=== PATIENT | female | born 1995 | race African-American/Black ===

== ENCOUNTER 2021-07-23 20:51 | Emergency (ER) | payer OTHER ==
[~2021-07-23] VITALS: Ht 165.1 cm; Wt 57.2 kg
[2021-07-23 21:00] VITALS: BP 115/90
--- NOTE | 2021-07-23 21:00 | NUR ---
TO BED AMBULATORY
[2021-07-23] MEDS ORDERED: SILVER SULFADIAZINE 1% 50 GM JAR TP ONE (21:15)
--- NOTE | 2021-07-23 21:15 | NUR ---
LEFT FOOT PAIN WITH BLISTERS X2 AFTER SPILLING HOT COOKING OIL ON FOOT
[2021-07-23] MEDS ORDERED: HYDROcodone/APAP 5/325 MG 1 TAB TAB PO ONE (22:40)
[2021-07-23] MEDS ORDERED: IBUP-1801 PO (22:40)
[2021-07-23] MEDS ORDERED: SILV-22 TP (22:40)
[2021-07-23] MEDS ORDERED: HYDR-5080 PO ×2 (22:40→22:41)
--- NOTE | 2021-07-23 23:15 | NUR ---
DSD WITH SILVADENE CREAM APPLIED. CRUTCHES GIVEN WITH CRUTH TRAINING AND RETURN DEMONSTRATION
[2021-07-23 23:34] VITALS: BP 115/90
--- NOTE | 2021-07-23 23:34 | NUR ---
Patient discharged with v/s stable. Written and verbal after care instructions given and explained. Patient alert, oriented and verbalized understanding of instructions. Ambulatory with steady gait. All questions addressed prior to discharge. ID band removed. Patient advised to follow up with PMD. Rx of NORCO, IBUPROFEN, SILVADENE CREAM given. Patient educated on indication of medication including possible reaction and side effects. Opportunity to ask questions provided and answered.
== END 2021-07-23 23:34 | disposition home or self-care (01) ==
LOC: MED 20:51
DX: T25.222A Burn of second degree of left foot, initial encounter (principal); X10.2XXA Contact with fats and cooking oils, initial encounter; Y93.89 Activity, other specified; Y92.89 Other specified places as the place of occurrence of the external cause; Y99.8 Other external cause status
CPT/HCPCS: 16020; 90471; 90715; 99283